=== PATIENT | female | born 1935 | race Caucasian/White ===

== ENCOUNTER → 2017-10-28 | Outpatient (CLI) | payer OTHER | LOC: CIMAGING 09:49 | PROVIDERS: ATTEND Internal Medicine Pulmonary Disease | DX: J84.10 Pulmonary fibrosis, unspecified (principal); R91.1 Solitary pulmonary nodule; I51.7 Cardiomegaly; K80.20 Calculus of gallbladder without cholecystitis without obstruction | CPT/HCPCS: 71250-PO ==